=== PATIENT | male | born 1975 | race Caucasian/White ===

== ENCOUNTER 2016-08-23 15:32 | Emergency (ER) | payer OTHER ==
[2016-08-23] MEDS ORDERED: NS 1,000 ML IV ONE ×2 (15:37→17:04)
--- NOTE | 2016-08-23 15:40 | EDPHY ---
H & P Time Seen by Provider: 08/23/16 15:33 HPI/ROS: CHIEF COMPLAINT: Seizure HISTORY OF PRESENT ILLNESS: The patient is a 40-year-old man with no significant past medical history who had a seizure while he was eating at a restaurant this afternoon in [place]. Witnesses state that his seizure that lasted for about 45 seconds and was generalized tonic-clonic. The patient was initially combative and was given 5 mg IM Versed by EMS. He seemed postictal to EMS. He is gradually cleared. He has no focal weakness or numbness. He denies any significant medical history. He denies any significant alcohol use or withdrawal. No benzodiazepine use. He does take tramadol for chronic neck pain. No incontinence, no vomiting. REVIEW OF SYSTEMS: Constitutional: denies: chills, fever, recent illness, recent injury EENTM: denies: blurred vision, double vision, nose congestion Respiratory: denies: cough, shortness of breath Cardiac: denies: chest pain, irregular heart rate, lightheadedness, palpitations Gastrointestinal/Abdominal: denies: abdominal pain, diarrhea, nausea, vomiting, blood streaked stools Genitourinary: denies: dysuria, frequency, hematuria, pain Musculoskeletal: denies: joint pain, muscle pain Skin: denies: lesions, rash, jaundice, bruising Neurological: See HPI denies: headache, numbness, paresthesia, tingling, dizziness, weakness Hematologic/Lymphatic: denies: blood clots, easy bleeding, easy bruising Immunologic/allergic: denies: HIV/AIDS, transplant EXAM: GENERAL: Well-appearing, well-nourished and in no acute distress. HEAD: Atraumatic, normocephalic. EYES: Pupils equal round and reactive to light, extraocular movements intact, sclera anicteric, conjunctiva are normal. ENT: TMs normal, nares patent, oropharynx clear without exudates. Moist mucous membranes. NECK: Normal range of motion, supple without lymphadenopathy or JVD. LUNGS: Breath sounds clear to auscultation bilaterally and equal. No wheezes rales or rhonchi. HEART: Regular rate and rhythm without murmurs, rubs or gallops. ABDOMEN: Soft, nontender, normoactive bowel sounds. No guarding, no rebound. No masses appreciated. BACK: No CVA tenderness, no spinal tenderness, step-offs or deformities EXTREMITIES: Normal range of motion, no pitting or edema. No clubbing or cyanosis. NEUROLOGICAL: Cranial nerves II through XII grossly intact. Normal speech, normal gait. 5/5 strength, normal movement in all extremities, normal sensation , able to answer questions appropriately. PSYCH: Normal mood, normal affect. SKIN: Warm, dry, normal turgor, no visible rashes or lesions. Source: Patient Exam Limitations: No limitations - Medical/Surgical History Hx Asthma: No Hx Chronic Respiratory Disease: No Hx Diabetes: No Hx Cardiac Disease: No Hx Renal Disease: No Hx Cirrhosis: No Hx Alcoholism: No Hx HIV/AIDS: No Hx Splenectomy or Spleen Trauma: No - Family History Significant Family History: No pertinent family hx - Social History Smoking Status: Never smoked Alcohol Use: Occasionally Drug Use: Marijuana Constitutional: Initial Vital Signs Temperature (C) 36.8 C 08/23/16 15:32 Heart Rate 118 H 08/23/16 15:32 Respiratory Rate 20 08/23/16 15:32 Blood Pressure 129/82 H 08/23/16 15:32 O2 Sat (%) 98 08/23/16 15:32 O2 Delivery Mode Room Air Allergies/Adverse Reactions: No Known Allergies Allergy (Verified 08/23/16 15:46) Home Medications: Medication Instructions Recorded traMADol 08/23/16 Medical Decision Making - Diagnostics EKG Interpretation: An EKG obtained and was read and documented in trace view. Please see trace view for full reading and report. Sinus rhythm, tachycardia, no acute ischemic changes or arrhythmia Imaging Results: Imaging Impressions Head CT 08/23/16 15:38 Impression: Normal. Findings and recommendations discussed with DALILA BROCK at 1635 hour, 2016. Final report concurs with initial preliminary interpretation. Imaging: Discussed imaging studies w/ call center assistant Radiologist ED Course/Re-evaluation: 5:05 p.m. we discussed the lab and imaging results. The patient feels reassured. He is back to baseline. He continues to deny alcohol withdrawal or sedative withdrawal. We discussed driving precautions and follow-up with Neurology. I will not start him on an antiepileptic at this point. He has called his friend for ride. His heart rate has improved. Differential Diagnosis: Partial list of the Differential diagnosis considered include but were not limited to; seizure, alcohol withdrawal, benzodiazepine withdrawal, syncope, substance abuse and although unlikely based on the history and physical exam, I also considered tumor, hemorrhage, CVA. I discussed these differential diagnoses and the plan with the patient as well as the usual and expected course. The patient understands that the diagnosis is provisional and that in medicine we are not always correct and that further workup is often warranted. Usual and customary warnings were given. All of the patient's questions were answered. The patient was instructed to return to the emergency department should the symptoms at all worsen or return, otherwise to followup with the physician as we discussed. - Data Points Laboratory Results: Laboratory Results 08/23/16 15:10 08/23/16 15:10 08/23/16 08/23/16 15:10 15:10 WBC 11.66 10^3/uL H 10^3/uL (3.80-9.50) RBC 5.60 10^6/uL 10^6/uL (4.40-6.38) Hgb 16.8 g/dL g/dL (13.7-17.5) Hct 51.3 % H % (40.0-51.0) MCV 91.6 fL fL (81.5-99.8) MCH 30.0 pg pg (27.9-34.1) MCHC 32.7 g/dL g/dL (32.4-36.7) RDW 12.5 % % (11.5-15.2) Plt Count 252 10^3/uL 10^3/uL (150-400) MPV 11.7 fL fL (8.7-11.7) Neut % (Auto) Not Reported Lymph % (Auto) Not Reported Glades % (Auto) Not Reported Eos % (Auto) Not Reported Baso % (Auto) Not Reported Nucleat RBC Rel Count 0.0 % % (0.0-0.2) Absolute Neuts (auto) Not Reported Absolute Lymphs (auto) Not Reported Absolute Monos (auto) Not Reported Absolute Eos (auto) Not Reported Absolute Basos (auto) Not Reported Absolute Nucleated RBC 0.00 10^3/uL 10^3/uL (0-0.01) Immature Gran % Not Reported Seg Neutrophils % 53 % % Lymphocytes % 33 % % Monocytes % 10 % % Eosinophils % 2 % % Metamyelocytes % 2 % % Immature Gran # Not Reported Absolute Seg Neuts 6.18 10^/uL 10^/uL (1.70-6.50) Absolute Lymphocytes 3.85 10^3/uL H 10^3/uL (1.00-3.00) Absolute Monocytes 1.17 10^3/uL H 10^3/uL (0.30-0.80) Absolute Eosinophils 0.23 10^3/uL 10^3/uL (0.03-0.40) Absolute Metamyelocyte 0.23 10^3/mL H 10^3/mL (0.00-0.00) RBC/WBC/PLT Morphology NORMAL (NORMAL) Platelet Estimate ADEQUATE (ADEQ) Sodium 142 mEq/L mEq/L (134-144) Potassium 4.4 mEq/L mEq/L (3.5-5.2) Chloride 98 mEq/L mEq/L (97-110) Carbon Dioxide 12 mEq/l L mEq/l (22-31) Anion Gap 32 mEq/L H mEq/L (8-16) BUN 17 mg/dL mg/dL (7-23) Creatinine 1.4 mg/dL H mg/dL (0.7-1.3) Estimated GFR 57 Glucose 115 mg/dL H mg/dL (70-100) Calcium 9.8 mg/dL mg/dL (8.5-10.4) Medications Given: Discontinued Medications Sodium Chloride (Ns) 1,000 mls @ 0 mls/hr IV ONCE ONE PRN Reason: Wide Open Stop: 08/23/16 15:38 Last Admin: 08/23/16 15:50 Dose: 1,000 mls Sodium Chloride (Ns) 1,000 mls @ 0 mls/hr IV ONCE ONE PRN Reason: Wide Open Stop: 08/23/16 17:05 Last Admin: 08/23/16 17:06 Dose: 1,000 mls Departure - Departure Disposition: Home, Routine, Self-Care Clinical Impression: Seizure Condition: Fair Instructions: New-Onset Seizure in Adults (ED) Additional Instructions: Do not operate heavy machinery until you follow up with Neurology. Referrals: Patient,NotPresent [Unknown] - As per Instructions Bob Shin MD [Medical Doctor] - As per Instructions
[2016-08-23 15:50] VITALS: TEMP 98.2
--- NOTE | 2016-08-23 15:51 | CPEKG ---
Heart Rate: 113 RR Interval: 531 P-R Interval: 160 QRSD Interval: 92 QT Interval: 340 QTC Interval: 467 P [place]: 66 QRS [place]: 86 T Wave [place]: 51 EKG Severity - OTHERWISE NORMAL ECG - EKG Impression: SINUS TACHYCARDIA Electronically Signed By: Marin Valdivia 23-Aug-2016 16:09:53
[2016-08-23 15:56] LABS: ADD DIFF? YES; ADD MORPH? NO; ADD SCAN? NO; ATYPICAL LYMPHOCYTE FLAG 0 (0-99); FRAGMENT RBC FLAG 0 (0-99); HEMATOCRIT 51.3 % (40.0-51.0); HEMOGLOBIN 16.8 g/dL (13.7-17.5); LEFT SHIFT FLG 40 (0-99); LIPEMIA HEMOLYSIS FLAG 80 (0-99); MEAN CELL HEMOGLOBIN CONCENTR. 32.7 g/dL (32.4-36.7); MEAN CELL VOLUME 91.6 fL (81.5-99.8); MEAN PLATELET VOLUME 11.7 fL (8.7-11.7); PLATELET CLUMPS FLAG 0 (0-99); PLATELET COUNT 252 10^3/uL (150-400); RED CELL DISTRIBUTION WIDTH 12.5 % (11.5-15.2)
[2016-08-23 16:01] LABS: ANION GAP 32 mEq/L (8-16); CALCIUM 9.8 mg/dL (8.5-10.4); CARBON DIOXIDE 12 mEq/l (22-31); CHLORIDE 98 mEq/L (97-110); CREATININE 1.4 mg/dL (0.7-1.3); GLOMERULAR FILTRATION RATE 57; GLUCOSE 115 mg/dL (70-100); POTASSIUM 4.4 mEq/L (3.5-5.2); SODIUM 142 mEq/L (134-144)
[2016-08-23 16:21] LABS: PLATELET ESTIMATE ADEQUATE (ADEQ)
[2016-08-23 17:30] VITALS: BP 117/73; PULSE 103; RESP 20; O2SAT 95
[2016-08-23] MEDS ORDERED: POTASSIUM CL 20 MEQ TAB PO ONE (17:43)
[2016-08-23] MEDS ORDERED: FUROSEMIDE 40 MG/4 ML VIAL IVP ONE (17:44)
== END 2016-08-23 17:29 | disposition home or self-care (01) ==
DX: R56.9 Unspecified convulsions (principal)